=== PATIENT | male | born 1960 | race Caucasian/White ===

== ENCOUNTER 2016-12-31 21:38 | Emergency (ER) | payer OTHER ==
[2016-12-31 21:47] VITALS: BP 119/73; PULSE 90; TEMP 98.3; BMI 22.8
--- NOTE | 2016-12-31 22:20 | PDOC ---
History of Present Illness - General Chief Complaint: Injury Stated Complaint: SLIPPED ON ICE INJURING RIGHT ANKLE AND KNEE Time Seen by Provider: 12/31/16 21:51 History Source: Patient - History of Present Illness Timing/Duration: 1-3 hours Severity: moderate Modifying Factors: worse with: rest Associated Symptoms: reports: denies symptoms Past History - Past Medical History Allergies/Adverse Reactions: Allergies Allergy/AdvReac Type Severity Reaction Status Date / Time amoxicillin Allergy Intermediate Hives Verified 12/31/16 21:39 Penicillins Allergy Intermediate Hives Verified 12/31/16 21:39 Sulfa (Sulfonamide Allergy Intermediate Hives Verified 12/31/16 21:39 Antibiotics) Home Medications: Ambulatory Orders NK [No Known Home Medication] 12/31/16 Cancer: Yes (PROSTATE) - Psycho/Social/Smoking Cessation Hx Anxiety: No Suicidal Ideation: No Smoking History: Never smoked Have you smoked in the past 12 months: No Information on smoking cessation initiated: No Hx Alcohol Use: No Drug/Substance Use Hx: No Substance Use Type: None Review of Systems - Review of Systems All Other Systems: Reviewed and Negative *Physical Exam - Vital Signs Last Vital Signs Temp Pulse Resp BP Pulse Ox 98.3 F 90 16 119/73 100 12/31/16 21:42 12/31/16 21:42 12/31/16 21:42 12/31/16 21:42 12/31/16 21:42 - Physical Exam Comments: 01/01/17 05:54 GENERAL: [The patient is awake, alert, and fully oriented, and in no apparent distress.] HEAD: [Normal with no signs of trauma.] EYES: [Pupils equal, round and reactive to light, extraocular movements intact, sclera anicteric, conjunctiva are normal.] ENT: [TMs normal, nares patent, oropharynx clear without exudates. Moist mucous membranes.] NECK: [Normal range of motion, supple without lymphadenopathy, JVD, or masses.] LUNGS: [Breath sounds equal, clear to auscultation bilaterally. No wheezes, and no crackles.] HEART: [Regular rate and rhythm, normal S1 and S2 without murmur, rub or gallop.] ABDOMEN: [Soft, nontender, normoactive bowel sounds. No guarding, no rebound. No masses appreciated.] EXTREMITIES: tender over fibular-talar ligament.] NEUROLOGICAL: [Cranial nerves II through XII grossly intact. Normal speech, normal gait.] PSYCH: [Normal mood, normal affect.] SKIN: [Warm, Dry, normal turgor, no rashes or lesions noted.] Medical Decision Making - Medical Decision Making 01/01/17 05:55 plain films negative, as read by me, referred to radiology. a/p mild ankle sprain nsaids *DC/Admit/Observation/Transfer Diagnosis at time of Disposition: Right ankle sprain Qualifiers: Encounter type: initial encounter Involved ligament of ankle: tibiofibular ligament Qualified Code(s): S93.431A - Sprain of tibiofibular ligament of right ankle, initial encounter - Discharge Dispostion Disposition: HOME Condition at time of disposition: Stable - Patient Instructions Printed Discharge Instructions: DI for Ankle Sprain
== END 2016-12-31 22:29 | disposition home or self-care (01) ==
LOC: FER 21:38
DX: S93.431A Sprain of tibiofibular ligament of right ankle, initial encounter (principal); W00.9XXA Unspecified fall due to ice and snow, initial encounter; Y93.9 Activity, unspecified; Y92.410 Unspecified street and highway as the place of occurrence of the external cause; Z85.46 Personal history of malignant neoplasm of prostate
CPT/HCPCS: 73610-TC-RT; 99281-25